=== PATIENT | female | born 1985 | race Caucasian/White ===

== ENCOUNTER 2021-05-14 19:20 | Emergency (ER) | payer SELFPAY ==
[2021-05-14 19:29] VITALS: BP 122/88; PULSE 111; RESP 20; TEMP 36.2; O2SAT 100
[2021-05-14 22:27] VITALS: BP 140/77; PULSE 102; RESP 18; O2SAT 99
[2021-05-14 22:36] LABS: Bacteria Urine Moderate (10-30); RBC Urine 30-100/HPF (0-5/HPF); Squamous Epithelial Cell Urine 1-5 /HPF (0-5/HPF); WBC Urine 0-1/HPF (0-5/HPF)
[2021-05-14 22:37] LABS: Culture Indicated Urine Cult Not Indicated; Mucus Urine 1+ (Negative)
--- NOTE | 2021-05-14 22:43 | ED.ABDPAIN ---
HPI - Abdominal Pain General Chief Complaint: Abdominal Pain Stated Complaint: LEFT SIDE PAIN KIDNEY STONES Time Seen by Provider: 05/14/21 22:43 Source: patient Mode of arrival: Ambulatory Limitations: no limitations History of Present Illness HPI narrative: This is a 35-year-old female who states she has had left-sided flank pain has been slowly increasing over the last 48 hours. Patient states she has had some movement to the front on the left. It has not moved down low. She denies any fevers. She has had some mild nausea but no vomiting. She has not had any dysuria, urgency or frequency. She has noted some hematuria. She denies any issues with bowel movements. Patient states she has had many kidney stones in the past she has never required intervention. She has had 1 prior kidney stone where she was infected and was observed overnight hospital passed the stone and was discharged home. Patient traveled here from [place] and also forgot her home medications of Lamictal 100 mg b.i.d. and gabapentin 600 mg t.i.d. Patient states she takes these for seizure disorder. She has had Flomax in the past, Toradol as well as Gilbert for pain control without any issues. She has had a hysterectomy but denies any other surgical intervention or prior lithotripsies. Patient denies any other major medical issues. She politely defers any additional workup feels comfortable with pain control and Flomax with plan to return if she is not improving over the next several days. Related Data Previous Rx's Medication Instructions Recorded gabapentin 600 mg tablet 600 mg PO TID 5 Days #15 tab 05/14/21 hydrocodone 5 mg-acetaminophen 325 1 tab PO QID PRN #10 tab 05/14/21 mg tablet lamotrigine 100 mg tablet 100 mg PO BID #10 tab 05/14/21 (Lamictal) tamsulosin 0.4 mg capsule (Flomax) 0.4 mg PO DAILY #7 cap 05/14/21 Allergies Allergy/AdvReac Type Severity Reaction Status Date / Time No Known Drug Allergies Allergy Verified 05/14/21 19:31 Review of Systems Review of Systems ROS Unobtainable: All systems reviewed & are unremarkable except as noted in HPI and below Exam Narrative Exam Narrative: GENERAL: Alert and oriented x three, female in [id number] distress. HEENT: Head normocephalic, atraumatic, EOMI, pupils reactive, face symmetric, moist mucous membranes NECK: Supple, full range of motion CARDIOVASCULAR: Regular rate and rhythm without murmurs, rubs or gallops. RESPIRATORY: Breath sounds equal bilaterally, no wheezes rales or rhonchi. ABDOMEN: Soft, nontender. Normoactive bowel sounds all 4 quadrants. No guarding or rebound, rigidity, no mass, nondistended. : No CVA tenderness bilaterally. EXTREMITIES: Normal range of motion, no clubbing or edema. Neurovascularly intact NEUROLOGICAL: Cranial nerves II through XII grossly intact. Moving all extremities SKIN: Warm, dry, no petechiae, no rashes or lesions. Initial Vital Signs Initial Vital Signs: Vital Signs Temperature 97.2 F L 05/14/21 19:29 Pulse Rate 111 H 05/14/21 19:29 Respiratory Rate 20 05/14/21 19:29 Blood Pressure 122/88 05/14/21 19:29 Pulse Oximetry 100 05/14/21 19:29 Course Orders Ordered: Discontinued Medications Hydrocodone Bitart/Acetaminophen (Hydrocodone/Acet 5/325 Prepack) 1 bottle MISC SEEINSTR ONE Stop: 05/14/21 22:56 Last Admin: 05/14/21 23:03 Dose: 1 bottle Documented by: NEFTALY Ketorolac Tromethamine (Ketorolac 30 Mg/Ml Vial) 30 mg IM NOW ONE Stop: 05/14/21 22:56 Last Admin: 05/14/21 23:03 Dose: 30 mg Documented by: NEFTALY Tamsulosin HCl (Tamsulosin 0.4 Mg Capsule) 0.4 mg PO NOW ONE Stop: 05/14/21 22:56 Last Admin: 05/14/21 23:03 Dose: 0.4 mg Documented by: NEFTALY Vital Signs Vital signs: Vital Signs - 8 hr 05/14/21 22:27 Pulse Rate 102 H Respiratory Rate 18 Blood Pressure 140/77 Pulse Oximetry 99 MDM - Abdominal Pain Lab Data Labs: Lab Results 05/14/21 Range/Units 20:07 Urine RBC 30-100/hpf H (0-5/HPF) Urine WBC 0-1/hpf (0-5/HPF) Ur Squamous Epith Cells 1-5 /hpf (0-5/HPF) Urine Bacteria Moderate (10-30) H (None) Urine Mucus 1+ H (Negative) Ur Culture Indicated? Cult not indicated Point of care testing: Point of Care Testing Test Results Negative Urine Dip Bedside Urine Glucose Negative Bedside Urine Bilirubin - Negative Bedside Urine Ketone - Negative Urine Specific [place] 1.030 Bedside Urine Occult Blood +++ Bedside Urine pH 6.0 Bedside Urine Protein + 30 Bedside Urine Urobilinogen - Negative Bedside Urine Nitrite - Negative Bedside Urine Leukocytes - Negative Esterase MDM Narrative Medical decision making narrative: This is a 35-year-old female comes with concern for kidney stones. Patient states she has had them in the past and will often past them. [place] and does not have anything for pain control or Flomax. She is also for got to of her anti seizure medications. Patient at this time defers any additional workup, her urine does show hematuria without other obvious signs of infection. She is given a dose Toradol, Flomax here in the department and a prepack for short course of pain medication as well as prescriptions for her Lamictal and gabapentin. Patient is aware that if she develops fevers has intractable pain or worsening symptoms she is to return and feels comfortable with this plan. Discharge Plan Departure Patient Disposition: Home Clinical Impression: Kidney stone Instructions: DI for Kidney Stones Activity Restrictions/Additional Instructions: I hope the rest of your trip goes much better. I agree that you likely have a kidney stone. Your urine does not appear infected at this time. Prescriptions are included for Flomax. Take this once daily. You may continue ibuprofen up to 800 mg every 8 hours. If this is inadequate you may add Gilbert 1 tablet every 6 hours as needed for pain. Short-term prescription for Lamictal and gabapentin is also included. Please return if you have fevers, if your pain is not improving or is worsening, persistent vomiting, inability urinate, black or bloody stools, lightheadedness or passing out or other new or concerning symptoms. Prescriptions: New tamsulosin [Flomax] 0.4 mg capsule 0.4 mg PO DAILY Qty: 7 RF: 0 hydrocodone-acetaminophen 5-325 mg tablet 1 tab PO QID PRN (Reason: pain) Qty: 10 RF: 0 lamotrigine [Lamictal] 100 mg tablet 100 mg PO BID Qty: 10 RF: 0 gabapentin 600 mg tablet 600 mg PO TID 5 Days Qty: 15 RF: 0
[2021-05-14] MEDS: HYDROCODONE/ACET 5/325 PREPACK 1 BOTTLE MISC (23:03)
[2021-05-14] MEDS: TAMSULOSIN 0.4 MG CAPSULE PO (23:03)
[2021-05-14] MEDS: KETOROLAC 30 MG/ML VIAL IM (23:03)
== END 2021-05-14 23:10 | disposition home or self-care (01) ==
PROVIDERS: Emergency Provider Emergency Medicine
DX: N20.0 Calculus of kidney (principal); R11.0 Nausea
CPT/HCPCS: 81003; 81015; 81025; 96372; 99283; J1885